=== PATIENT | female | born 1975 | race Caucasian/White ===

== ENCOUNTER 2018-04-26 17:34 | Emergency (ER) | payer BC, MEDICAID, OTHER ==
[2018-04-26 18:06] VITALS: BP 133/90
[2018-04-26] MEDS ORDERED: Ibuprofen TAB* 600 MG PO ONE (18:33)
--- NOTE | 2018-04-26 18:43 | UC ---
Lower Extremity/Ankle HPI - HPI Summary HPI Summary: Patient is 43 year old , who present today with right ankle pain after twisting her ankle while getting down the bus. Heart her ankle in morning today. Reports some swelling along with pain but is able to bear weight . Reports her pain at 3/10, has not taken any pain medications yet. Denies any past injury or prior ankle pain episodes. - History of Current Complaint Chief Complaint: UCLowerExtremity Stated Complaint: RIGHT ANKLE INJURY - WC Time Seen by Provider: 04/26/18 18:01 Hx Last Menstrual Period: 03/2018 Pain Intensity: 3 - Allergies/Home Medications Allergies/Adverse Reactions: Allergies Allergy/AdvReac Type Severity Reaction Status Date / Time bee venom protein (honey bee) Allergy Airway Verified 04/26/18 18:06 Obstruction Penicillins Allergy Rash Verified 04/26/18 18:06 procaine Allergy Rash And Verified 04/26/18 18:06 Itching Home Medications: Home Medications metFORMIN* [Glucophage 1000 MG TAB *] 1,000 mg PO BID 04/26/18 [History Confirmed 04/26/18] PMH/Surg Hx/FS Hx/Imm Hx Previously Healthy: Yes Endocrine History: Diabetes, Thyroid Disease, Hypothyroidism Other Endocrine History: negative Other Cardiovascular History: negative Other Respiratory History: negative Other GI/ History: negative Other Neurological History: negative Other Psychological History: negative Other Cancer History: negative - Surgical History Surgical History: Yes Surgery Procedure, Year, and Place: tubal ligation. LEFT EYE SX AGE 5 YR. EAR TUBES - Family History Known Family History: Positive: Hypertension, Respiratory Disease - Social History Alcohol Use: None Substance Use Type: None Smoking Status (MU): Never Smoked Tobacco - Immunization History Most Recent Influenza Vaccination: not yet 2017 Review of Systems Constitutional: Negative Skin: Negative Eyes: Negative ENT: Negative Respiratory: Negative Cardiovascular: Negative Gastrointestinal: Negative Genitourinary: Negative Motor: Decreased ROM, Other - Pain and ankle Neurovascular: Negative Neurological: Negative Psychological: Negative Is Patient Immunocompromised?: No All Other Systems Reviewed And Are Negative: Yes Physical Exam - Summary Physical Exam Summary: Physical Exam: Const: Appears well. No signs of apparent distress present. Alert and oriented x 3. Head/Face: Atraumatic, normocephalic on inspection. Eyes: EOMI and PERRLA in both eyes. Conjunctivae clear. No discharge noted ENT: Hearing normal, TM normal appearing bilaterally . Respiratory: Respirations are unlabored. Lungs clear to auscultation bilaterally, no wheezing , rhonchi or rales noted . CVS: Regular rate and Rhythm, S1S2 normal , no murmurs identified. Extremities: Peripheral circulation is grossly normal. Pulses 2+ Abdomen : Soft non tender , nondistended , Bowel sounds present . No guarding , rebound tenderness or rigidity noted. Skin: No lesions or rash located on the upper extremities or on the lower extremities. Neuro: Cranial nerves II to XII intact, motor and sensory intact. DTR Intact bilaterally. Mood is normal. Affect is normal. Musculo: Walks with an antalgic gait. Ankle/Feet examination: Right Ankle: Gait: Able to be her weight Inspection/palpation: Mild lateral swelling but no bruising identified. There is tenderness to palpation in the area of ATFL. There is no tenderness to palpation of the medial malleolus, lateral malleolus or the base of 5th [address] ROM: full AROM but slightly painful Strength: 5-/5 due to pain Special tests:Anterior drawer test is negative but painful. Side to side test negative.Talar tilt test(inversion stress) and the eversion stress test negative. N Right Feet: Insp/Palp: There is slight tenderness at the base of the fifth metatarsal without any apparent swelling Strength: EHL 5/5 blaterally Skin: No scars, rashes, lesions or ecchymosis. 2+ posterior tibial and dorsalis pedis pulse bilaterally. Neuro: Sensation to light touch is intact in the lower extremities bilaterally. Coordination normal. Triage Information Reviewed: Yes Appearance: Well-Appearing Vital Signs: Initial Vital Signs Temp 98.5 F 04/26/18 17:59 Pulse 83 04/26/18 17:59 Resp 18 04/26/18 17:59 BP 133/90 04/26/18 17:59 Pulse Ox 97 04/26/18 17:59 Vital Signs Reviewed: Yes Lower Extremity Course/Dx - Course Course Of Treatment: During the visit today, we obtained x-rays of the right ankle and the right foot which were negative for any fracture . Xray of right ankle and foot: final report : MILD SOFT TISSUE SWELLING OVERLYING THE FIBULAR MALLEOLUS WITHOUT RADIOGRAPHICALLY APPARENT FRACTURE OR DISLOCATION. She seems to have sustained a lateral ankle sprain due to inversion injury. Was given ibuprofen in urgent care with some pain relief. We discussed the findings and further plan. Patient expressed understanding . - Differential Dx/Diagnosis Provider Diagnoses: Lateral ankle sprain Discharge - Sign-Out/Discharge Documenting (check all that apply): Patient Departure - Discharge Plan Condition: Stable Disposition: HOME Patient Education Materials: Ankle Sprain (ED) Referrals: Mell Stevenson MD [Primary Care Provider] - Kellen Silvestre MD [Medical Doctor] - 1 Week Additional Instructions: Please start using the ankle brace Start gentle range of motion exercise A to Z. Start physical therapy Ice and ibuprofen as needed for pain control Follow up with orthopedics in 1 week Return to Urgent care / ER if symptoms get worse. - Billing Disposition and Condition Condition: STABLE Disposition: Home
--- NOTE | 2018-04-26 19:10 | RAD ---
INDICATION: Lateral ankle and base of the fifth metatarsal pain after inversion injury COMPARISON: None. TECHNIQUE: 3 views of the right ankle and 3 views of the right foot were obtained. FINDINGS: There is mild soft tissue swelling overlying the fibular malleolus. The bones are normal alignment. Joint spaces appear maintained. No fracture is seen. Enthesophyte formation is noted on the calcaneal tubercle at the origin of the plantar fascia and insertion site of the Achilles tendon. IMPRESSION: MILD SOFT TISSUE SWELLING OVERLYING THE FIBULAR MALLEOLUS WITHOUT RADIOGRAPHICALLY APPARENT FRACTURE OR DISLOCATION. If the patient's symptoms persist, follow-up imaging is recommended.
== END 2018-04-26 19:24 | disposition home or self-care (01) ==
LOC: UCCORT 17:34
DX: M25.571 Pain in right ankle and joints of right foot (principal); Z88.0 Allergy status to penicillin; Z88.5 Allergy status to narcotic agent; E11.9 Type 2 diabetes mellitus without complications; Z79.84 Long term (current) use of oral hypoglycemic drugs; S93.401A Sprain of unspecified ligament of right ankle, initial encounter
CPT/HCPCS: 99213; A9270-GY; G0463

== ENCOUNTER 2019-06-19 18:31 | Emergency (ER) | payer BC ==
[2019-06-19 19:08] VITALS: BP 131/90
--- NOTE | 2019-06-19 20:32 | UC ---
Respiratory Complaint HPI - History of Current Complaint Chief Complaint: UCRespiratory Stated Complaint: COUGH Time Seen by Provider: 06/19/19 20:15 Hx Last Menstrual Period: 06/02/19 Pain Intensity: 0 - Allergies/Home Medications Allergies/Adverse Reactions: Allergies Allergy/AdvReac Type Severity Reaction Status Date / Time bee venom protein (honey bee) Allergy Airway Verified 06/19/19 19:01 Obstruction Penicillins Allergy Rash Verified 06/19/19 19:01 procaine Allergy Rash And Verified 06/19/19 19:01 Itching Home Medications: Home Medications Lisinopril TAB* [Prinivil TAB*] 5 mg PO BID 06/19/19 [History Confirmed 06/19/19 ] guaiFENesin LIQ* [Robitussin*] 10 ml PO Q4H PRN 06/19/19 [History Confirmed ] PMH/Surg Hx/FS Hx/Imm Hx - Surgical History Surgical History: Yes Surgery Procedure, Year, and Place: tubal ligation. LEFT EYE SX AGE 5 YR. EAR TUBES - Family History Known Family History: Positive: Hypertension, Respiratory Disease - Social History Alcohol Use: None Substance Use Type: None Smoking Status (MU): Never Smoked Tobacco Household Exposure Type: Cigarettes - Immunization History Most Recent Influenza Vaccination: not yet 2017 Physical Exam Vital Signs: Initial Vital Signs Temp 98.3 F 06/19/19 19:02 Pulse 84 06/19/19 19:02 Resp 16 06/19/19 19:02 BP 131/90 06/19/19 19:02 Pulse Ox 98 06/19/19 19:02 Discharge ED - Discharge Plan Referrals: Bee Thompson PA [Primary Care Provider] -
[2019-06-19] MEDS ORDERED: Azithromycin TAB* 250 MG PO ONE (20:50)
--- NOTE | 2019-06-19 20:53 | UC ---
Respiratory Complaint HPI - HPI Summary HPI Summary: 3 day hx of cough and sinus congestion with production; hx of asthma. Concerned because her elderly mother has COPD Has used albuterol x 2 in the past days. - History of Current Complaint Chief Complaint: UCRespiratory Stated Complaint: COUGH Time Seen by Provider: 06/19/19 20:15 Hx Obtained From: Patient Hx Last Menstrual Period: 06/02/19 Onset/Duration: Gradual Onset Timing: Intermittent Episodes Severity Initially: Mild Severity Currently: Mild Pain Intensity: 0 Character: Cough: Productive Aggravating Factors: Nothing Alleviating Factors: Nothing Associated Signs And Symptoms: Positive: URI, Nasal Congestion - Allergies/Home Medications Allergies/Adverse Reactions: Allergies Allergy/AdvReac Type Severity Reaction Status Date / Time bee venom protein (honey bee) Allergy Airway Verified 06/19/19 19:01 Obstruction Penicillins Allergy Rash Verified 06/19/19 19:01 procaine Allergy Rash And Verified 06/19/19 19:01 Itching Home Medications: Home Medications Lisinopril TAB* [Prinivil TAB*] 5 mg PO BID 06/19/19 [History Confirmed 06/19/19 ] guaiFENesin LIQ* [Robitussin*] 10 ml PO Q4H PRN 06/19/19 [History Confirmed ] PMH/Surg Hx/FS Hx/Imm Hx Endocrine History: Diabetes Neurological History: Migraine - Surgical History Surgical History: Yes Surgery Procedure, Year, and Place: tubal ligation. LEFT EYE SX AGE 5 YR. EAR TUBES - Family History Known Family History: Positive: Hypertension, Respiratory Disease - mother has COPD - Social History Occupation: Employed Part-time Lives: With Family Alcohol Use: None Substance Use Type: None Smoking Status (MU): Never Smoked Tobacco Household Exposure Type: Cigarettes - Immunization History Most Recent Influenza Vaccination: not yet 2017 Review of Systems All Other Systems Reviewed And Are Negative: Yes Constitutional: Positive: Negative Skin: Positive: Negative Eyes: Positive: Negative ENT: Positive: Negative Respiratory: Positive: Cough, Other - has used steroid inhaler in the past. Cardiovascular: Positive: Negative Gastrointestinal: Positive: Negative Genitourinary: Positive: Negative Musculoskeletal: Positive: Negative Physical Exam Triage Information Reviewed: Yes Appearance: Ill-Appearing, Obese Vital Signs: Initial Vital Signs Temp 98.3 F 06/19/19 19:02 Pulse 84 06/19/19 19:02 Resp 16 06/19/19 19:02 BP 131/90 06/19/19 19:02 Pulse Ox 98 06/19/19 19:02 ENT: Positive: Pharyngeal erythema, TMs normal Respiratory: Positive: Decreased breath sounds, Expiration - mild late expiratory wheeze. Cardiovascular: Positive: RRR, No Murmur Musculoskeletal Exam: Normal Neurological Exam: Normal Psychological Exam: Normal Skin Exam: Normal Respiratory Course/Dx - Course Course Of Treatment: azithromycin, continue albuterol use. - Differential Dx/Diagnosis Differential Diagnosis/HQI/PQRI: Asthma, Bronchitis, Lower Resp Infection, Sinusitis Provider Diagnosis: Sinusitis Discharge ED - Sign-Out/Discharge Documenting (check all that apply): Patient Departure All imaging exams completed and their final reports reviewed: No Studies - Discharge Plan Condition: Stable Disposition: HOME Prescriptions: Azithromycin TAB* [Zithromax TAB (Z-JAZMINE) 250 mg #6 tabs] 250 mg PO DAILY #4 tab Patient Education Materials: Sinusitis (ED) Referrals: Bee Thompson PA [Primary Care Provider] - Additional Instructions: Continue azithromycin, taking next dose tomorrow night. Use albuterol as needed for cough. - Billing Disposition and Condition Condition: STABLE Disposition: Home
== END 2019-06-19 21:02 | disposition home or self-care (01) ==
LOC: UCCORT 18:31
DX: J32.9 Chronic sinusitis, unspecified (principal); J45.909 Unspecified asthma, uncomplicated; Z88.0 Allergy status to penicillin
CPT/HCPCS: 99212; A9270-GY; G0463